=== PATIENT | male | born 1985 | race Caucasian/White ===

== ENCOUNTER 2022-11-12 15:03 | Emergency (ER) | payer OTHER ==
[~2022-11-12] VITALS: Ht 175.3 cm; Wt 108.6 kg
[2022-11-12 15:15] VITALS: BP 151/90
[2022-11-12] MEDS ORDERED: LISI20TA33 PO (15:31)
[2022-11-12] MEDS ORDERED: OMEP40CA4 PO (15:31)
[2022-11-12] MEDS ORDERED: CEPHALEXIN 500 MG CAP PO ONE (16:20)
[2022-11-12] MEDS ORDERED: CEPH500C PO (16:20)
== END 2022-11-12 16:51 | disposition home or self-care (01) ==
LOC: M ED 15:03 → EDBD 15:03 → M ED 16:51
DX: S61.442A Puncture wound with foreign body of left hand, initial encounter (principal); W45.8XXA Other foreign body or object entering through skin, initial encounter; Y92.89 Other specified places as the place of occurrence of the external cause; Y93.H3 Activity, building and construction; Y99.0 Civilian activity done for income or pay; I10 Essential (primary) hypertension; Z91.013 Allergy to seafood; Z79.899 Other long term (current) drug therapy